=== PATIENT | female | born 1965 | race Caucasian/White ===

== ENCOUNTER 2019-03-02 18:43 | Emergency (ER) | payer BC ==
[~2019-03-02] VITALS: Ht 162.6 cm; Wt 56.0 kg
[2019-03-02 18:51] VITALS: BP 142/91
[2019-03-02] MEDS ORDERED: diphenhydrAMINE 50 mg/ml inj IV ONE (20:15)
[2019-03-02] MEDS ORDERED: ketorolac trometh. 30mg/ml inj. IV ONE (20:15)
[2019-03-02] MEDS ORDERED: proCHLORperazine 10 MG/2 ml inj IV ONE (20:15)
[2019-03-02] MEDS ORDERED: METO-292 PO (22:13)
[2019-03-02] MEDS ORDERED: NAPR-56 PO (22:13)
[2019-03-02] MEDS ORDERED: metoclopramide 10mg tablet PO ONE (22:15)
[2019-03-02] MEDS ORDERED: naproxen 500mg tablet PO ONE (22:15)
== END 2019-03-02 22:46 | disposition home or self-care (01) ==
LOC: ER 18:44
DX: G43.909 Migraine, unspecified, not intractable, without status migrainosus (principal); Z79.899 Other long term (current) drug therapy
CPT/HCPCS: 96374; 96375; 99283; J0780; J1200; J1885; J8597